=== PATIENT | female | born 1960 | race Caucasian/White ===

== ENCOUNTER 2016-09-01 19:16 | Emergency (ER) | payer OTHER ==
[~2016-09-01] VITALS: Ht 154.9 cm; Wt 56.7 kg
[~2016-09-01 19:16] MED LIST: ALLEGRA60 MG PO; ALPRAZOLAM0.25 M2 PO; ATORVASTATIN CA20 MG PO; CIPRO 500MG TA500 MG PO; EC NAPROSYN500 MG PO; FLEXERIL10 M1 PO; FLEXERIL10 MG PO; IMITREX 25MG TA25 MG PO; IMITREX50 MG OR; INDERAL 40MG. T40 MG PO; LORATADINE10 MG OR; LORTAB 5/500 501 TAB PO; MEDROL 4MG. DOSE4 MG PO; MOTRIN600 M1 PO; PEPCID40 MG PO; PREDNISONE 20MG20 MG PO; TESSALON PERLE100 MG PO; TYLENOL 8 HOUR650 MG PO; TYLENOL W/CODEI1 TA2 PO
[2016-09-01 19:20] VITALS: BP 140/79
[2016-09-01] MEDS ORDERED: METFORMIN 500M500 M1 PO (19:30)
[2016-09-01] MEDS ORDERED: SUMATRIPTAN SUC50 M1 PO (19:32)
[2016-09-01] MEDS ORDERED: PANTOPRAZOLE SO40 M1 PO (19:32)
[2016-09-01] MEDS ORDERED: ATORVASTATIN CA40 MG PO (19:33)
[2016-09-01] MEDS ORDERED: CLOPIDOGREL75 M2 PO (19:33)
[2016-09-01] MEDS ORDERED: BISOPROLOL FUMA10 MG PO (19:34)
[2016-09-01] MEDS ORDERED: VENTOLIN H0.09 MG/Ac IH (19:34)
[2016-09-01] MEDS ORDERED: ASPIRIN ADULT L81 M3 PO (19:35)
[2016-09-01 19:36] LABS: HEMOGLOBIN 13.1 g/dL (12.2-16.2); LYMPH # 2.4 K/mm3 (0.7-4.5); LYMPH % 20.5 % (10-50.0)
[2016-09-01 20:03] LABS: BUN 3 mg/dL (7-18)
[2016-09-01 20:05] LABS: GFR (ESTIMATED) 65 ML/MIN (59-)
--- OUTSIDE RECORDS SUMMARY | 2016-09-01 20:08 | External Medical Summary Rpt ---
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 R06.02 Shortness of breath R07.9 Chest pain, unspecified Z11.59 Encounter for screening for other viral diseases Z13.1 Encounter for screening for diabetes mellitus Z51.81 Encounter for therapeutic drug level monitoring Z72.0 Tobacco use Vital Signs 12-28-2012 12:30 Name Value Interpretat Reference Comment ion Range BP 87 mm[Hg] Diastolic BP Systolic 146 mm[Hg] Heart 94 /min Rate/Pulse O2% 98 % Respiratory 20 /min Rate Results Labs Lab Lab Date Result Refere Interp Status Commen Order Detail nces retati t Range on STREP SCREEN (RAPID) (12-28-2012 12:00) STREP POSITIV complet SCREEN 013 E ed (RAPID) 12:00 Encounters Encounter Start End Date Code Location Performer Type Date Emergency KUNAL Zuluaga MD (ER) 3 12:33 3 12:34 [facility]
--- OUTSIDE RECORDS SUMMARY | 2016-09-01 20:08 | External Medical Summary Rpt ---
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
--- OUTSIDE RECORDS SUMMARY | 2016-09-01 20:09 | External Medical Summary Rpt ---
Demographics Preferred Language Yakut Marital Status Unknown Congregational Affiliation Unknown Race Unknown Ethnic Group Unknown Author Author ZORAN Address Unknown Phone Immunization Unable to retrieve immunization data due to connection failure with Immunization Registry. Please try again later.
--- OUTSIDE RECORDS SUMMARY | 2016-09-01 20:09 | External Medical Summary Rpt ---
Author Author ZORAN Address Unknown Phone [email or web address] Purpose Continuity of Care Document - through 2016
--- OUTSIDE RECORDS SUMMARY | 2016-09-01 20:09 | External Medical Summary Rpt ---
Author Author ZORAN Address Unknown Phone [email or web address] Purpose Continuity of Care Document - through 2016
--- OUTSIDE RECORDS SUMMARY | 2016-09-01 20:09 | External Medical Summary Rpt ---
Demographics Preferred Language Occitan Marital Status Unknown Presybeterian Affiliation Unknown Race Unknown Ethnic Group Unknown Author Author ZORAN Address Unknown Phone Immunization Unable to retrieve immunization data due to connection failure with Immunization Registry. Please try again later.
[2016-09-01 20:10] LABS: URINE BILIRUBIN - DIPSTICK NEGATIVE (NEG); URINE BLOOD TRACE-INTACT (NEG)
--- OUTSIDE RECORDS SUMMARY | 2016-09-01 20:11 | External Medical Summary Rpt ---
Author Author [employer], [employer] Organization [employer] Address Unknown Phone Unavailable Results CBC W Auto Differential panel in Blood Observa Value Referen Units Interpr Notes Date tion ce etation Range Basophils 0 - 0.2 K/MM3 Normal No Sep 01 informati 2016 7:25 [#/volume on in PM ] in source Blood by data Automated count Basophils 0.1 - 2.0 % Normal No Sep 01 informati 2016 7:25 leukocyte on in PM s in source Blood by data Automated count Eosinophi 0.0 - 0.4 K/mm3 Normal No Sep 01 ls informati 2016 7:25 [#/volume on in PM ] in source Blood by data Automated count Eosinophi 0.1 - % Normal No Sep 01 ls/100 12.0 informati 2016 7:25 leukocyte on in PM s in source Blood by data Automated count Granulocy 1.8 - 7.8 K/mm3 High No Sep 01 yifan informati 2016 7:25 [#/volume on in PM ] in source Blood by data Automated count Granulocy 37.0 - % Normal No Sep 01 yifan/100 80.0 informati 2016 7:25 leukocyte on in PM s in source Blood by data Automated count Hematocri 37.0 - % Normal No Sep 01 t [Volume 47.0 informati 2016 7:25 on in PM Fraction] source of Blood data Hemoglobi 12.2 - g/dL Normal No Sep 01 n 16.2 informati 2016 7:25 [Mass/vol on in PM ume] in source Blood data Lymphocyt 0.7 - 4.5 K/mm3 Normal No Sep 01 es informati 2016 7:25 [#/volume on in PM ] in source Unspecifi data ed specimen by Automated count Lymphocyt 10 - 50.0 % Normal No Sep 01 es informati 2016 7:25 [#/volume on in PM ] in source Unspecifi data ed specimen by Automated count Erythrocy 27 - 31.2 pg Normal No Sep 01 te mean informati 2017 7:25 corpuscul on in PM ar source hemoglobi data n [Entitic mass] Erythrocy 31.8 - g/dl Normal No Sep 01 te mean 35.4 informati 2016 7:25 corpuscul on in PM ar source hemoglobi data n concentra tion [Mass/vol ume] by Automated count Erythrocy 82.2 - fl Normal No Sep 01 te mean 97.8 informati 2016 7:25 corpuscul on in PM ar volume source [Entitic data volume] by Automated count Monocytes 0.1 - 1.0 K/mm3 Normal No Sep 01 informati 2016 7:25 [#/volume on in PM ] in source Blood by data Automated count Monocytes 1.7 - 9.3 % Normal No Sep 01 /100 informati 2016 7:25 leukocyte on in PM s in source Blood by data Automated count Platelet 7.4 - fl Normal No Sep 01 mean 10.4 informati 2016 7:25 volume on in PM [Entitic source volume] data in Blood by Automated count Platelets 142 - 424 K/mm3 Normal No Sep 01 informati 2016 7:25 [#/volume on in PM ] in source Blood data Erythrocy 4.2 - 5.4 M/mm3 Normal No Sep 01 yifan informati 2016 7:25 [#/volume on in PM ] in source Amniotic data fluid Erythrocy 11.5 - % Normal No Sep 01 te 17.5 informati 2016 7:25 distribut on in PM ion width source [Entitic data volume] by Automated count Leukocyte 4.8 - K/MM3 High No Sep 01 s 10.8 informati 2016 7:25 [#/volume on in PM ] in source Blood data Hep Prf-Ac Observa Value Referen Units Interpr Notes Date tion ce etation Range Hepatit Negativ Negativ No No No May 25 is B e e informa informa informa 2017 virus tion in tion in tion in 10:16 surface source source source AM Ag data data data [Presen ce] in Serum by Immunoa ssay Hep B Negativ Negativ No No No May 25 Core e e informa informa informa 2017 IgM tion in tion in tion in 10:16 source source source AM data data data Hepatit Negativ Negativ No No No May 25 is A e e informa informa informa 2017 virus tion in tion in tion in 10:15 Ab source source source AM [Units/ data data data volume] in Serum by Radioim munmachelle muniz (BIBI) Hep C Negativ Negativ No No No May 25 Ab e e informa informa informa 2016 tion in tion in tion in 10:17 source source source AM data data data Glyco Observa Value Referen Units Interpr Notes ti ce etation Range Hemoglo 5.9 <=7.0 % No Referen May 24 bin informa ce 2017 A1c/Hem tion in Interva 6:20 PM oglobin source l for .total data Hgb in A1c\.br Blood \\.br\H gb A1c Interpr etation \.br\-- ------- -- ------- ------- --\.br\ \.br\ < 6.0 Non-Gracy betic Range\. br\6.0 - 7.0 ADA Therape utic Target\ .br\ > 7.0 Action suggest ed Lipid Scr Observa Value Referen Units Interpr Notes ce etation Range Cholest 269 <=200 mg/dL High < 200 May 24 alyssa 2017 [Percen 5:33 PM tile] Desirab le\.br\ 200 - 239 Borderl ine High\.b r\>= 240 High TRIGLYC 379 <=150 mg/dL High < 150 May 24 ERIDES. 2017 TOTAL Normal\ 5:33 PM .br\150 - 199 Borderl ine High\.b r\200 - 499 High\.b r\ >= 500 Very High CHOLEST 26 >=40 mg/dL Low > 60 May 24 EROLS.I 2017 N HDL Optimal 5:33 PM \.br\40 - 60 Accepta ble\.br \ < 40 Low LDL 167 <=100 mg/dL High < 100 May 24 Calcula 2017 brandyn 5:33 PM Optimal \.br\10 0 - 129 Near or above optimal \.br\13 0 - 159 Borderl ine High\.b r\160 - 189 High\.b r\ >= 190 Very High Auto Diff Observa Value Referen Units Interpr Notes ce etation Range Neutrop 46.4 No % No No May 24 hils informa informa informa 2017 [#/volu tion in tion in tion in 4:55 PM me] in source source source Blood data data data by Automat ed count Lymphoc 39.2 No % No No Apr 17 ytes informa informa informa 2017 [#/volu tion in tion in tion in 4:55 PM me] in source source source Blood data data data by Automat ed count Monocyt 9.7 No % No No Apr 17 es informa informa informa 2017 [#/volu tion in tion in tion in 4:55 PM me] in source source source Blood data data data by Automat ed count Eos 3.8 No % No No Apr 17 Percent informa informa informa 2017 tion in tion in tion in 4:55 PM source source source data data data Baso 0.9 No % No No Apr 17 Percent informa informa informa 2017 tion in tion in tion in 4:55 PM source source source data data data Neut# 3.9 1.8 - x10(3)/ No No Apr 17 7.7 mcL informa informa 2017 tion in tion in 4:55 PM source source data data Lymph# 3.3 0.6 - x10(3)/ No No Apr 17 4.8 mcL informa informa 2017 tion in tion in 4:55 PM source source data data [place]# 0.8 0.0 - x10(3)/ No No Apr 17 1.3 mcL informa informa 2017 tion in tion in 4:55 PM source source data data Eos# 0.3 0.0 - x10(3)/ No No Apr 17 0.5 mcL informa informa 2017 tion in tion in 4:55 PM source source data data Baso# 0.1 0.0 - x10(3)/ No No Apr 17 0.2 mcL informa informa 2017 tion in tion in 4:55 PM source source data data CBC Observa Value Referen Units Interpr Notes Date tion ce etation Range LEUKOCY 8.5 4.0 - x10(3)/ No No Apr 17 YIFAN 11.0 mcL informa informa 2017 tion in tion in 4:55 PM source source data data Erythro 4.40 3.80 - x10(6)/ No No Apr 17 cytes 5.10 mcL informa informa 2017 [#/volu tion in tion in 4:55 PM me] in source source Blood data data by Automat ed count Hemoglo 13.8 12.0 - gm/dL No No May 24 bin 15.6 informa informa 2017 [Mass/v tion in tion in 4:55 PM olume] source source in data data Blood Hematoc 40.9 35.7 - % No No May 24 rit 45.9 informa informa 2017 [Volume tion in tion in 4:55 PM source source Fractio data data n] of Blood by Automat ed count Erythro 93.0 82.5 - fL No No May 24 cyte 99.8 informa informa 2017 mean tion in tion in 4:55 PM corpusc source source ular data data volume [Entiti c volume] by Automat ed count Erythro 31.4 27.0 - pg No No May 24 cyte 34.3 informa informa 2016 mean tion in tion in 4:55 PM corpusc source source ular data data hemoglo bin [Entiti c mass] by Automat ed count Erythro 33.7 32.1 - gm/dL No No May 24 cyte 35.3 informa informa 2016 mean tion in tion in 4:55 PM corpusc source source ular data data hemoglo bin concent ration [Mass/v olume] by Automat ed count Erythro 14.1 11.5 - % No No May 24 cyte 15.0 informa informa 2016 distrib tion in tion in 4:55 PM ution source source width data data [Ratio] by Automat ed count Platele 321 144 - x10(3)/ No No May 24 ts 423 mcL informa informa 2016 [#/volu tion in tion in 4:55 PM me] in source source Blood data data by Automat ed count MPV 8.7 6.8 - fL No No May 24 10.8 informa informa 2017 tion in tion in 4:55 PM source source data data EK EKG 12 LEAD Observa Value Referen Units Interpr Notes Date tion ce etation Range Station No No No No Dec 04 vinnie ECG informa informa informa informa 2016 tion in tion in tion in tion in 6:14 AM Study\. source source source source br\St. data data data data Elijessibe th [employer] d\.br\I nterpre tive Stateme nts\.br \SINUS BRADYCA RDIA\.b r\POSSI BLE RIGHT VENTRIC ULAR CONDUCT ION DELAY\. br\No change since previou s ECG\.br \Electr onicall y Signed On 16:20:4 9 EDT by Jose Carlos Jordan MD EK EKG 12 LEAD Observa Value Referen Units Interpr Notes ce etation Range Station No No No No Dec 03 vinnie ECG informa informa informa informa 2015 tion in tion in tion in tion in 6:09 PM Study\. source source source source br\St. data data data data Elizabe th [employer] d\.br\I nterpre tive Stateme nts\.br \SINUS RHYTHM\ .br\POS SIBLE RIGHT VENTRIC ULAR CONDUCT ION DELAY\. br\No change since previou s ECG\.br \Electr onicall y Signed On 16:10:4 8 EDT by Jose Carlos Jordan MD XR CHEST PA AND LATERAL Observa Value Referen Units Interpr Notes ce etation Range \.br\XR No No No No Dec 03 CHEST informa informa informa informa 2015 PA AND tion in tion in tion in tion in 4:20 PM LATERAL source source source source data data data data 4:20 PM\.br\ \.br\Cl inical: -CHEST PAIN\.b r\\.br\ COMPARI SONS: None.\. br\\.br \FINDIN GS:\.br \\.br\T he lungs are clear. The costoph renic sulci are sharp. The heart and\.br \medias tinal\. br\cont ours are normal. There are no acute osseous finding s in the chest.\ .br\\.b r\IMPRE SSION:\ .br\\.b r\Claudia l chest.\ .br\ NT Pro-BNP Observa Value Referen Units Interpr Notes Date ce etation Range NT 193 <=319 pg/mL No An NT Dec 03 Pro-BNP informa pro-BNP 2015 tion in level 4:37 PM source less data than 300 pg/mL in any patient , regardl ess of age,\.b r\Effec tively rules out acute CHF with a 99% negativ e predict mehul value. PT Observa Value Referen Units Interpr Notes Date tion ce etation Range PT 11.0 10.1 - second( No No Dec 03 12.9 s) informa informa 2016 tion in tion in 4:24 PM source source data data INR in 0.96 0.88 - No No Level Dec 03 Platele 1.12 informa informa of 2016 t poor tion in tion in Therapy 4:24 PM plasma source source by data data Indicat Coagula ions tion Target assay INR Range\. br\\.br \Standa rd Dose Treatme nt and prophyl axis of venous 2.0 - 3.0\.br \ thrombo sis, pulmona ry embolis m\.br\\ .br\ High Dose High risk patient s with mechani dayron 2.5 - 3.5\.br \ heart valves Auto Diff Observa Value Referen Units Interpr Notes Date tion ce etation Range Neutrop 55.2 No % No No Dec 03 hils informa informa informa 2015 [#/volu tion in tion in tion in 4:08 PM me] in source source source Blood data data data by Automat ed count Lymphoc 33.2 No % No No Dec 03 ytes informa informa informa 2015 [#/volu tion in tion in tion in 4:08 PM me] in source source source Blood data data data by Automat ed count Monocyt 7.4 No % No No Dec 03 es informa informa informa 2015 [#/volu tion in tion in tion in 4:08 PM me] in source source source Blood data data data by Automat ed count Eos 3.4 No % No No Dec 03 Percent informa informa informa 2016 tion in tion in tion in 4:08 PM source source source data data data Baso 0.8 No % No No Dec 03 Percent informa informa informa 2016 tion in tion in tion in 4:08 PM source source source data data data Neut# 5.0 1.8 - x10(3)/ No No Dec 03 7.7 mcL informa informa 2016 tion in tion in 4:08 PM source source data data Lymph# 3.0 0.6 - x10(3)/ No No Dec 03 4.8 mcL informa informa 2016 tion in tion in 4:08 PM source source data data [place]# 0.7 0.0 - x10(3)/ No No Dec 03 1.3 mcL informa informa 2016 tion in tion in 4:08 PM source source data data Eos# 0.3 0.0 - x10(3)/ No No Dec 03 0.5 mcL informa informa 2016 tion in tion in 4:08 PM source source data data Baso# 0.1 0.0 - x10(3)/ No No Dec 03 0.2 mcL informa informa 2016 tion in tion in 4:08 PM source source data data CBC Observa Value Referen Units Interpr Notes Date tion ce etation Range LEUKOCY 9.0 4.0 - x10(3)/ No No Dec 03 YIFAN 11.0 [facility] informa informa 2015 tion in tion in 4:08 PM source source data data Erythro 4.08 3.80 - x10(6)/ No No Dec 03 cytes 5.10 [facility] informa informa 2015 [#/volu tion in tion in 4:08 PM me] in source source Blood data data by Automat ed count Hemoglo 12.7 12.0 - gm/dL No No Dec 03 bin 15.6 informa informa 2015 [Mass/v tion in tion in 4:08 PM olume] source source in data data Blood Hematoc 38.1 35.7 - % No No Dec 03 rit 45.9 informa informa 2016 [Volume tion in tion in 4:08 PM source source Fractio data data n] of Blood by Automat ed count Erythro 93.4 82.5 - fL No No Dec 03 cyte 99.8 informa informa 2016 mean tion in tion in 4:08 PM corpusc source source ular data data volume [Entiti c volume] by Automat ed count Erythro 31.1 27.0 - pg No No Dec 03 cyte 34.3 informa informa 2016 mean tion in tion in 4:08 PM corpusc source source ular data data hemoglo bin [Entiti c mass] by Automat ed count Erythro 33.2 32.1 - gm/dL No No Dec 03 cyte 35.3 informa informa 2016 mean tion in tion in 4:08 PM corpusc source source ular data data hemoglo bin concent ration [Mass/v olume] by Automat ed count Erythro 13.6 11.5 - % No No Dec 03 cyte 15.0 informa informa 2016 distrib tion in tion in 4:08 PM ution source source width data data [Ratio] by Automat ed count Platele 403 144 - x10(3)/ No No Dec 03 ts 423 mcL informa informa 2015 [#/volu tion in tion in 4:08 PM me] in source source Blood data data by Automat ed count MPV 7.7 6.8 - fL No No Dec 03 10.8 informa informa 2015 tion in tion in 4:08 PM source source data data EK EKG 12 LEAD Observa Value Referen Units Interpr Notes Date ti ce etation Range Station No No No No Dec 03 vinnie ECG informa informa informa informa 2016 tion in tion in tion in tion in 3:50 PM Study\. source source source source br\St. data data data data Elizabe th [employer] d\.br\I nterpre tive Stateme nts\.br \SINUS RHYTHM\ .br\POS SIBLE RIGHT VENTRIC ULAR CONDUCT ION DELAY\. br\NO PRIOR ECG FOR COMPARI SON\.br \Electr onicall y Signed On 016 16:06:0 9 EDT by Jose Carlos Jordan MD Free T3 Observa Value Referen Units Interpr Notes Date ti ce etation Range T3 Free 3.09 2.00 - pg/mL No No Nov 09 4.40 informa informa 2016 tion in tion in 9:51 PM source source data data Lipid Scr Observa Value Referen Units Interpr Notes Date tion ce etation Range Cholest 260 <=200 mg/dL High < 200 Nov 09 alyssa 2016 [Percen 9:50 PM tile] Desirab le\.br\ 200 - 239 Borderl ine High\.b r\>= 240 High TRIGLYC 305 <=150 mg/dL High < 150 Nov 09 ERIDES. 2016 TOTAL Normal\ 9:50 PM .br\150 - 199 Borderl ine High\.b r\200 - 499 High\.b r\ >= 500 Very High CHOLEST 29 >=40 mg/dL Low > 60 Nov 09 EROLS.I 2016 N HDL Optimal 9:50 PM \.br\40 - 60 Accepta ble\.br \ < 40 Low LDL 170 <=100 mg/dL High < 100 Nov 09 Calcula 2016 brandyn 9:51 PM Optimal \.br\10 0 - 129 Near or above optimal \.br\13 0 - 159 Borderl ine High\.b r\160 - 189 High\.b r\ >= 190 Very High TSH Observa Value Referen Units Interpr Notes Date tion ce etation Range Thyrotr 1.770 0.270 - mcIU/mL No No Nov 09 opin 4.200 informa informa 2015 [Units/ tion in tion in 9:51 PM volume] source source in data data Serum or Plasma Free T4 Observa Value Referen Units Interpr Notes Date tion ce etation Range Thyroxi 1.07 0.93 - ng/dL No No Nov 09 ne (T4) 1.70 informa informa 2015 free tion in tion in 9:50 PM [Mass/v source source olume] data data in Serum or Plasma Hemogram Observa Value Referen Units Interpr Notes Date tion ce etation Range LEUKOCY 8.3 4.0 - x10(3)/ No No Nov 09 YIFAN 11.0 mcL informa informa 2015 tion in tion in 9:20 PM source source data data Erythro 4.52 3.80 - x10(6)/ No No Nov 09 cytes 5.10 mcL informa informa 2015 [#/volu tion in tion in 9:20 PM me] in source source Blood data data by Automat ed count Hemoglo 14.1 12.0 - gm/dL No No Nov 09 bin 15.6 informa informa 2016 [Mass/v tion in tion in 9:20 PM olume] source source in data data Blood Hematoc 42.8 35.7 - % No No Nov 09 rit 45.9 informa informa 2016 [Volume tion in tion in 9:20 PM source source Fractio data data n] of Blood by Automat ed count Erythro 94.7 82.5 - fL No No Nov 09 cyte 99.8 informa informa 2016 mean tion in tion in 9:20 PM corpusc source source ular data data volume [Entiti c volume] by Automat ed count Erythro 31.1 27.0 - pg No No Nov 09 cyte 34.3 informa informa 2016 mean tion in tion in 9:20 PM corpusc source source ular data data hemoglo bin [Entiti c mass] by Automat ed count Erythro 32.8 32.1 - gm/dL No No Nov 09 cyte 35.3 informa informa 2016 mean tion in tion in 9:20 PM corpusc source source ular data data hemoglo bin concent ration [Mass/v olume] by Automat ed count Erythro 14.4 11.5 - % No No Nov 09 cyte 15.0 informa informa 2016 distrib tion in tion in 9:20 PM ution source source width data data [Ratio] by Automat ed count Platele 305 144 - x10(3)/ No No Nov 09 ts 423 mcL informa informa 2016 [#/volu tion in tion in 9:20 PM me] in source source Blood data data by Automat ed count MPV 8.7 6.8 - fL No No Nov 09 10.8 informa informa 2016 tion in tion in 9:20 PM source source data data XR CERVICAL SPINE AP LATERAL ODONTOID AND OBLIQUE Observa Value Referen Units Interpr Notes Date tion ce etation Range \.br\XR No No No No Jaiden 3 informa informa informa informa 2016 CERVICA tion in tion in tion in tion in 3:29 PM L SPINE source source source source AP data data data data LATERAL ODONTOI D AND OBLIQUE \.br\\. br\\.br \HISTOR Y: M54.2-C ervical dominique-ICD -10-CM\ .br\\.b r\\.br\ EXAM DATE:07/11/2015 3:29 PM\.br\ \.br\CO MPARISO N: 010.\.b r\\.br\ FINDING S:\.br\ There is no spondyl olisthe sis. There is no prevert ebral soft tissue\ .br\swe lling.\ .br\Dis c spaces are maintai radha. There are small vertebr al osteoph ytes at C4-C5\. br\and\ .br\C5- C6. There is mild osseous narrowi ng of the left C5-C6 neural foramen \.br\du e to\.br\ small margina l vertebr al osteoph ytes. There is no osseous narrowi ng of the\.br \neural foramen on the right.\ .br\\.b r\\.br\ IMPRESS ION:\.b r\\.br\ Mild hypertr ophic changes of C4, C5 and C6.\.br \Mild left foramin al narrowi ng at C5-C6.\ .br\ Free T3 Observa Value Referen Units Interpr Notes Date tion ce etation Range T3 Free 2.70 2.00 - pg/mL No No Feb 26 4.40 informa informa 2016 tion in tion in 3:27 PM source source data data Free T4 Observa Value Referen Units Interpr Notes Date tion ce etation Range Thyroxi 1.22 0.93 - ng/dL No No Feb 26 ne (T4) 1.70 informa informa 2016 free tion in tion in 3:27 PM [Mass/v source source olume] data data in Serum or Plasma Lipid Scr Observa Value Referen Units Interpr Notes Date tion ce etation Range Cholest 216 <=200 mg/dL High < 200 Feb 25 alyssa 2016 [Percen 6:44 PM tile] Desirab le\.br\ 200 - 239 Borderl ine High\.b r\>= 240 High TRIGLYC 174 <=150 mg/dL High < 150 Feb 25 ERIDES. 2016 TOTAL Normal\ 6:44 PM .br\150 - 199 Borderl ine High\.b r\200 - 499 High\.b r\ >= 500 Very High CHOLEST 33 >=40 mg/dL Low > 60 Feb 25 EROLS.I 2016 N HDL Optimal 6:44 PM \.br\40 - 60 Accepta ble\.br \ < 40 Low LDL 148 <=100 mg/dL High < 100 Feb 25 Calcula 2016 brandyn 6:44 PM Optimal \.br\10 0 - 129 Near or above optimal \.br\13 0 - 159 Borderl ine High\.b r\160 - 189 High\.b r\ >= 190 Very High TSH Observa Value Referen Units Interpr Notes Date tion ce etation Range Thyrotr 4.430 0.270 - mcIU/mL High No Feb 25 opin 4.200 informa 2016 [Units/ tion in 6:44 PM volume] source in data Serum or Plasma CBC Observa Value Referen Units Interpr Notes Date tion ce etation Range LEUKOCY 11.9 4.0 - x10(3)/ High No Feb 25 YIFAN 11.0 mcL informa 2016 tion in 6:07 PM source data Erythro 4.12 3.80 - x10(6)/ No No Feb 25 cytes 5.10 mcL informa informa 2016 [#/volu tion in tion in 6:07 PM me] in source source Blood data data by Automat ed count Hemoglo 13.0 12.0 - gm/dL No No Feb 25 bin 15.6 informa informa 2016 [Mass/v tion in tion in 6:07 PM olume] source source in data data Blood Hematoc 39.5 35.7 - % No No Feb 25 rit 45.9 informa informa 2016 [Volume tion in tion in 6:07 PM source source Fractio data data n] of Blood by Automat ed count Erythro 96.0 82.5 - fL No No Feb 25 cyte 99.8 informa informa 2016 mean tion in tion in 6:07 PM corpusc source source ular data data volume [Entiti c volume] by Automat ed count Erythro 31.6 27.0 - pg No No Feb 25 cyte 34.3 informa informa 2016 mean tion in tion in 6:07 PM corpusc source source ular data data hemoglo bin [Entiti c mass] by Automat ed count Erythro 32.9 32.1 - gm/dL No No Feb 25 cyte 35.3 informa informa 2016 mean tion in tion in 6:07 PM corpusc source source ular data data hemoglo bin concent ration [Mass/v olume] by Automat ed count Erythro 14.0 11.5 - % No No Feb 25 cyte 15.0 informa informa 2016 distrib tion in tion in 6:07 PM ution source source width data data [Ratio] by Automat ed count Platele 337 144 - x10(3)/ No No Feb 25 ts 423 mcL informa informa 2016 [#/volu tion in tion in 6:07 PM me] in source source Blood data data by Automat ed count MPV 8.8 6.8 - fL No No Feb 25 10.8 informa informa 2016 tion in tion in 6:07 PM source source data data Auto Diff Observa Value Referen Units Interpr Notes Date tion ce etation Range Neutrop 52.4 No % No No Feb 25 hils informa informa informa 2015 [#/volu tion in tion in tion in 6:07 PM me] in source source source Blood data data data by Automat ed count Lymphoc 34.5 No % No No Feb 25 ytes informa informa informa 2016 [#/volu tion in tion in tion in 6:07 PM me] in source source source Blood data data data by Automat ed count Monocyt 8.7 No % No No Feb 25 es informa informa informa 2016 [#/volu tion in tion in tion in 6:07 PM me] in source source source Blood data data data by Automat ed count Eos 3.5 No % No No Feb 25 Percent informa informa informa 2016 tion in tion in tion in 6:07 PM source source source data data data Baso 0.9 No % No No Feb 25 Percent informa informa informa 2016 tion in tion in tion in 6:07 PM source source source data data data Neut# 6.2 1.8 - x10(3)/ No No Feb 25 7.7 mcL informa informa 2016 tion in tion in 6:07 PM source source data data Lymph# 4.1 0.6 - x10(3)/ No No Feb 25 4.8 mcL informa informa 2016 tion in tion in 6:07 PM source source data data [place]# 1.0 0.0 - x10(3)/ No No Feb 25 1.3 mcL informa informa 2016 tion in tion in 6:07 PM source source data data Eos# 0.4 0.0 - x10(3)/ No No Feb 25 0.5 mcL informa informa 2016 tion in tion in 6:07 PM source source data data Baso# 0.1 0.0 - x10(3)/ No No Feb 25 0.2 mcL informa informa 2016 tion in tion in 6:07 PM source source data data XR KNEE LEFT AP LATERAL AND AXIAL Observa Value Referen Units Interpr Notes Date ti ce etation Range \.br\XR No No No No Oct 14 KNEE informa informa informa informa 2014 LEFT AP tion in tion in tion in tion in 12:50 source source source source PM LATERAL data data data data AND AXIAL 10/22/19 15 12:50 PM\.br\ \.br\Cl inical: 719.46- Pain in joint, lower leg-ICD -9-CM\. br\\.br \COMPAR ISONS: None.\. br\\.br \FINDIN GS:\.br \\.br\T here is normal alignme nt of left knee. The joint spaces are normal. There\. br\is\. br\tiny osteoph yte formati on of the patello femoral joint space. There is no\.br\ acute\. br\frac ture. There is no joint effusio n.\.br\ \.br\IM PRESSIO N:\.br\ \.br\Th ere is mild osteoar thritis of the left knee, predomi nantly involvi ng the\.br \patell ofemora l joint space. There is no acute fractur e.\.br\ CT ABDOMEN PELVIS W CONTRAST Observa Value Referen Units Interpr Notes Date ti ce etation Range CT No No No No June 21 abdomen informa informa informa informa 2014 and tion in tion in tion in tion in 12:16 pelvis source source source source PM with data data data data contras t\.br\\ .br\IND ICATION : Abdomin al pain and pancrea titis.\ .br\\.b r\PROCE DURE:\. br\\.br \CT abdomen and pelvis. 75 mL intrave nous contras t. Compari son February 25,\.br \2008.\ .br\\.b r\FINDI NGS:\.b r\\.br\ The lung bases are unremar kable. The liver spleen adrenal s kidneys and\.br \pancre as are normal. No\.br\ free fluid. No retrope ritonea l fluid. The visuali zed bowel and mesente ry\.br\ are unremar kable. No\.br\ abdomin al or pelvic lymph node enlarge ment.\. br\PELV IS:\.br \\.br\T he structu res of pelvis are unremar kable.\ .br\\.b r\No lytic or sclerot ic bone lesions .\.br\\ .br\IMP RESSION :\.br\\ .br\No acute intra-a bdomina l patholo gy. Fec Panc Elast-ARUP Observa Value Referen Units Interpr Notes Date tion ce etation Range Lopez 306 >=201 mcg/gm No INTERPR June 25 Elast-A informa ETIVE 2014 RUP tion in INFORMA 4:48 PM source TION: data Pancrea tic Elastas e\.br\ 201 ug/g or greater ....... ... Normal\ .br\ 100-200 ug/g ....... ....... ... Moderat e to mild\.b r\ pancrea tic insuffi ciency. \.br\ 99 ug/g or less... ....... ..... Severe exocrin e\.br\ pancrea tic insuffi ciency. Lipase Observa Value Referen Units Interpr Notes Date tion ce etation Range Lipase 18 13 - 60 IU/L No New June 21 Lvl informa referen 2014 tion in ce 4:46 PM source range data is signifi cantly differe nt from previou s. EGD-Colonoscopy Observa Value Referen Units Interpr Notes Date ti ce etation Range EGD-Col EGD-Col No No No No June 17 onoscop onoscop informa informa informa informa 2014 y y tion in tion in tion in tion in 7:45 AM Report\ source source source source .br\Salas data data data data e: 05/11/2 015 07:45 AM\.br\ Patient Name: NINFA ROOT\. br\Gend er: Female\ .br\\.b r\Accou nt #: [id number] 8\.br\D OB(age) : 89 (54)\.b r\\.br\ Endosco pist(s) :\.br\S kg cristina MD\.br\ \.br\\. br\\.br \\.br\\ .br\\.b r\\.br\ \.br\\. br\\.br \Referr ing Physici an(s):\ .br\CRISTAL ERIKA STEWART\ .br\[address] [place] [address]\.br \ (phone) \.br\([phone] (fax)\. br\\.br \\.br\A SA Class: P3 - 08:19:3 3 AM Angelique cristina\.br\\ .br\\.b r\Admin istered Medicat ions: Anesthe maikel adminis tered medicat ions\.b r\EGD Indicat ions: Dysphag ia: 787.20\ .br\Gen eral Procedu re:\.br \The procedu re, indicat ions, prepara tion and potenti al complic ations were\.b r\expla ined to the patient , who indicat ed underst anding and signed the\.br \corres ponding consent forms.. \.br\\. br\\.br \EGD\.b r\EGD Procedu re:\.br \Patien t was placed in left lateral decubit us positio n. The endosco pe was\.br \introd uced through mouth and advance d under direct visuali zation until second\ .br\par t of the duodenu m reached . Patient toleran ce to the procedu re was good. The\.br \proced ure was not difficu lt.\.br \\.br\E GD Finding s:\.br\ Esophag us Mucosa Diffuse grade II candidi asis was seen in the whole esophag us.\.br \These finding s were suggest mehul of Kate esophag itis. Samples were obtaine d for\.br \Histol ogy using a [place]. This is done to evaluat e for Kate esophag itis\.b r\Stoma ch Mucosa Erosion s of the mucosa was noted in the antrum. These finding s\.br\a re compati ble with erosive gastrit is. Multipl e cold forceps biopsie s were\.b r\perfo rmed for H. pylori in the stomach antrum. \.br\\. br\\.br \Colono scopy\. br\[place] noscopy Procedu re:\.br \The quality of prepara tion was Good. Patient was placed in left lateral \.br\de cubitus positio n. The colonos cope was introdu pa through rectum and advance d\.br\u nder direct visuali zation until cecum reached cm. The colonos cope was\.br \retrof lexed within the rectum. Careful visuali zation was perform ed as the\.br \instru ment was withdra wn. Patient toleran ce to the procedu re was excelle nt. The\.br \proced ure was not difficu lt. Digital exam was normal. \.br\\. br\[place] noscopy Finding s:\.br\ Mucosa Normal mucosa was noted in the whole colon. Multipl e cold forceps \.br\bi opsies were perform ed for histolo gy in the whole colon. This was done to\.br\ evaluat e for microsc opic colitis .\.br\\ .br\\.b r\EGD Impress ions:\. br\[place]ardner ions in the antrum compati ble with erosive gastrit is. (Biopsy ).\.br\ Esophag eal candidi asis (Brushi ng).\.b r\\.br\ Colonos copy Impress ions:\. br\Norm al mucosa in the whole colon. (Biopsy ).\.br\ \.br\Pl an: Await patholo gy results \.br\\. br\Papo cristina MD\.br\ Electro nically signed on 06/18/19 15 8:50:32 AM by Angelique cristina MD\.br\ MM US BREAST BIOPSY RIGHT Observa Value Referen Units Interpr Notes Date tion ce etation Range MM US No No No No Jun 05 BREAST informa informa informa informa 2014 BIOPSY tion in tion in tion in tion in 8:52 AM RIGHT\. source source source source br\ULTR data data data data ASOUND GUIDED VACUUM ASSISTE D RIGHT BREAST BIOPSY WITH CLIP PLACEME NT\.br\ AND A POST PROCEDU RE TWO VIEW MAMMOGR AM:\.br \Histor y: 54 year old female with detecti on of a 9 mm. oval solid mass in\.br\ the anterio r right breast 11:00 positio n.\.br\ The procedu re with risk and benefit was explain ed and informe d consent was\.br \obtain ed.\.br \The nearly isoecho ic mass was localiz ed by ultraso und in the 11:00\. br\posi tion.\. br\The overlyi ng skin was prepped and local anesthe maikel was obtaine d with\.b r\Lidoc ronit.\. br\Afte r a skin marek was made multipl e vacuum assiste d samples were obtaine d\.br\t hrough the lesion under ultraso und visuali zation. \.br\Fo llowing biopsy a marker clip was advance d into the mass.\. br\A post procedu re two view mammogr am demonst rates expecte d clip placeme nt.\.br \There were no immedia te complic ations. \.br\Fu rther imaging follow- up will be pending final patholo gy results .\.br\P atholog y Results : Benign\ .br\Thomas ign fibroad enoma.\ .br\REC OMMENDA TION:\. br\Rout ine screeni ng mammogr am in 1 year. MM POST PROCEDURE FILM DIGITAL RIGHT Observa Value Referen Units Interpr Notes Date tion ce etation Range MM POST No No No No Jun 05 informa informa informa informa 2014 PROCEDU tion in tion in tion in tion in 8:20 AM RE FILM source source source source data data data data DIGITAL RIGHT\. br\ULTR ASOUND GUIDED VACUUM ASSISTE D RIGHT BREAST BIOPSY WITH CLIP PLACEME NT\.br\ AND A POST PROCEDU RE TWO VIEW MAMMOGR AM:\.br \Histor y: 54 year old female with detecti on of a 9 mm. oval solid mass in\.br\ the anterio r right breast 11:00 positio n.\.br\ The procedu re with risk and benefit was explain ed and informe d consent was\.br \obtain ed.\.br \The nearly isoecho ic mass was localiz ed by ultraso und in the 11:00\. br\posi tion.\. br\The overlyi ng skin was prepped and local anesthe maikel was obtaine d with\.b r\Lidoc ronit.\. br\Afte r a skin marek was made multipl e vacuum assiste d samples were obtaine d\.br\t hrough the lesion under ultraso und visuali zation. \.br\Fo llowing biopsy a marker clip was advance d into the mass.\. br\A post procedu re two view mammogr am demonst rates expecte d clip placeme nt.\.br \There were no immedia te complic ations. \.br\Fu rther imaging follow- up will be pending final patholo gy results . MM MAMMO DIGITAL DIAGNOSTIC W CAD RIGHT Observa Value Referen Units Interpr Notes Date tion ce etation Range Procedu No No No No May 29 re:MM informa informa informa informa 2014 MAMMO tion in tion in tion in tion in 2:15 PM DIGITAL source source source source data data data data DIAGNOS TIC W CAD RIGHT\. br\Reas on for exam: additio nal evaluat ion request ed from abnorma l screeni ng.\.br \MM MAMMO DIGITAL DIAG CAD RIGHT\. br\CC and MLO view(s) were taken of the right breast. \.br\Th ere is a benign appeari ng 1.1 cm. oval density with circums cribed\ .br\mar gins\.b r\in the anterio r 11:00 positio n of the right breast. \.br\IM PRESSIO N: Incompl ete-nee d additio nal imaging evaluat ion\.br \(ACR-C ategory -0)\.br \RECOMM ENDATIO N:\.br\ Ultraso und of the right breast. \.br\, this ultraso und examina tion was perform ed on 05-29-14 and will be\.br\ reporte d\.br\s eparate ly.\.br \* The patient with a palpabl e abnorma lity, unexpla ined by breast\ .br\shirley ging, should be managed on clinica l basis by the attendi ng physici an.\.br \* Breast imaging has a false negativ e rate of 15%.\.b r\* The patient was notifie d by mail of the results of this examina tion.\. br\*The patient 's informa tion was entered into a [employer] system with a\.br\t arget\. br\due date for the next mammogr am.\.br \The mammogr am was reviewe d by a Radiolo gist and CAD. MM US BREAST LIMITED RIGHT Observa Value Referen Units Interpr Notes Date tion ce etation Range MM US No No No No May 29 BREAST informa informa informa informa 2014 LIMITED tion in tion in tion in tion in 10:10 source source source source AM RIGHT\. data data data data br\The exam of the non-pal pable mass in the right breast 11:00 anterio r\.br\p osition seen on recent mammogr am reveals 5 x 9 mm. oval mass hypoech oic .\.br\T hese finding s are consist ent with solid mass. It has a small interna l\.br\c ystic compone nt.\.br \IMPRES BARBARA: Suspici ous abnorma lity\.b r\(ACR- Categor y-4)\.b r\RECOM MENDATI ON:\.br \Ultras ound guided core biopsy. MM MAMMO DIGITAL SCREENING W CAD BILAT Observa Value Referen Units Interpr Notes Date tion ce etation Range Procedu No No No No May 24 re:MM informa informa informa informa 2015 MAMMO tion in tion in tion in tion in 2:35 PM DIGITAL source source source source data data data data SCREENI NG W CAD BILAT\. br\Reas on for exam: screeni ng (asympt omatic) .\.br\M M MAMMO DIG SCREEN CAD BILAT\. br\Bila teral CC and MLO view(s) were taken.\ .br\The re is a benign appeari ng 0.9 cm. oval density in the 11:00 positio n of\.br\ the right breast. \.br\Co mpared to prior studies the most recent being 04-05-01 \.br\IM PRESSIO N: Incompl ete-nee d additio nal imaging evaluat ion\.br \(ACR-C ategory -0)\.br \RECOMM ENDATIO N:\.br\ Special view mammogr am and ultraso und of the right breast. \.br\* The patient with a palpabl e abnorma lity, unexpla ined by breast\ .br\shirley ging, should be managed on clinica l basis by the attendi ng physici an.\.br \* Breast imaging has a false negativ e rate of 15%.\.b r\* The patient was notifie d by mail of the results of this examina tion.\. br\*The patient 's informa tion was entered into a [employer] system with a\.br\t arget\. br\due date for the next mammogr am.\.br \The mammogr am was reviewe d by a Radiolo gist and CAD. US RIGHT UPPER QUADRANT Observa Value Referen Units Interpr Notes Date tion ce etation Range PROCEDU No No No No May 24 RE: informa informa informa informa 2014 Right tion in tion in tion in tion in 2:05 PM upper source source source source quadran data data data data t ultraso und, 05/25/19 15.\.br \\.br\I NDICATI ON: Abdomin al pain.\. br\\.br \FINDIN GS: Right upper quadran t ultraso und. Compari son CT perform ed\.br\ 02/25/19 09. Gallbla dder is\.br\ normal. No choleli thiasis or cholecy stitis. The liver is sonogra phicall y\.br\n ormal. No focal\. br\hepa tic lesions . No intrahe patic or extrahe patic bile duct dilatat ion.\.b r\Commo n bile duct\.b r\measu res 2 mm. Pancrea s is sonogra phicall y normal where visuali zed. There\. br\is no hydrone phrosis \.br\in the right kidney which measure s 10.1 cm in length. \.br\\. br\IMPR ESSION: Negativ e right upper quadran t ultraso und. Vit D 1,25-SOLS Observa Value Referen Units Interpr Notes Date tion ce etation Range Vitamin 36 18 - 72 pg/mL No No Apr 1 D,1,25 informa informa 2014 ([place])2, tion in tion in 11:29 source source AM Total-S data data OLS Vitamin <8 No pg/mL No Vitamin May 08 informa informa D3, 2014 D2,1,25 tion in tion in 1,25([place] 11:29 source source )2 AM ([place])2-S data data indicat OLS es both endogen ous\.br \produc tion and supplem entatio n. Vitamin D2, 1,25([place] )2\.br\ is an indicat or of exogeou s sources , such as diet or\.br\ supplem entatio n. Interpr etation and therapy are based\. br\on measure ment of Vitamin D,1,25( [place])2, Total.\ .br\Thi s test was develop ed and its perform ance\.b r\berry cterist ics have been determi radha by [facility]\. br\Diag nostics [facility], [place], [place].\.br \Perfor marline charact eristic s refer to the\.br \analyt ical perform ance of the test.\. br\Perf ormed at: [facility]\.br\ [address], [address]\.br \ [place] [address] Vitamin 36 No pg/mL No No Apr 1 informa informa informa 2014 D3,1,25 tion in tion in tion in 11:29 source source source AM ([place])2-S data data data OLS Glyco Observa Value Referen Units Interpr Notes Date tion ce etation Range Hemoglo 5.7 <=7.0 % No Initial May 02 bin informa 2014 A1c/Hem tion in Diagnos 8:58 AM oglobin source tic .total data Criteri in a\.br\< Blood 5.7 % Normal\ .br\5.7 - 6.4 % At risk for diabete s mellitu s\.br\> = 6.5 % Consist ent with diabete s mellitu s\.br\\ .br\Gracy betes monitor ing\.br \Target Value (ADA recomme nded): < 7 % Auto Diff Observa Value Referen Units Interpr Notes Date tion ce etation Range Neutrop 56.1 No % No No Apr 25 hils informa informa informa 2014 [#/volu tion in tion in tion in 6:55 PM me] in source source source Blood data data data by Automat ed count Lymphoc 30.5 No % No No Apr 25 ytes informa informa informa 2014 [#/volu tion in tion in tion in 6:55 PM me] in source source source Blood data data data by Automat ed count Monocyt 9.6 No % No No May 01 es informa informa informa 2014 [#/volu tion in tion in tion in 6:55 PM me] in source source source Blood data data data by Automat ed count Eos 2.6 No % No No Apr 25 Percent informa informa informa 2014 tion in tion in tion in 6:55 PM source source source data data data Baso 1.2 No % No No Apr 25 Percent informa informa informa 2014 tion in tion in tion in 6:55 PM source source source data data data Neut# 5.1 1.8 - x10(3)/ No No May 01 7.7 mcL informa informa 2014 tion in tion in 6:55 PM source source data data Lymph# 2.8 0.6 - x10(3)/ No No May 01 4.8 mcL informa informa 2014 tion in tion in 6:55 PM source source data data [place]# 0.9 0.0 - x10(3)/ No No May 01 1.3 mcL informa informa 2014 tion in tion in 6:55 PM source source data data Eos# 0.2 0.0 - x10(3)/ No No May 01 0.5 mcL informa informa 2014 tion in tion in 6:55 PM source source data data Baso# 0.1 0.0 - x10(3)/ No No May 01 0.2 mcL informa informa 2014 tion in tion in 6:55 PM source source data data CBC Observa Value Referen Units Interpr Notes Date tion ce etation Range LEUKOCY 9.1 4.0 - x10(3)/ No No May 01 YIFAN 11.0 mcL informa informa 2014 tion in tion in 6:55 PM source source data data Erythro 4.05 3.80 - x10(6)/ No May 01 cytes 5.10 mcL informa informa 2014 [#/volu tion in tion in 6:55 PM me] in source source Blood data data by Automat ed count Hemoglo 13.5 12.0 - gm/dL No May 01 bin 15.6 informa informa 2014 [Mass/v tion in tion in 6:55 PM olume] source source in data data Blood Hematoc 39.2 35.7 - % No May 01 rit 45.9 informa informa 2014 [Volume tion in tion in 6:55 PM source source Fractio data data n] of Blood by Automat ed count Erythro 96.6 82.5 - fL No No May 01 cyte 99.8 informa informa 2014 mean tion in tion in 6:55 PM corpusc source source ular data data volume [Entiti c volume] by Automat ed count Erythro 33.2 27.0 - pg No No May 01 cyte 34.3 informa informa 2014 mean tion in tion in 6:55 PM corpusc source source ular data data hemoglo bin [Entiti c mass] by Automat ed count Erythro 34.4 32.1 - gm/dL No No May 01 cyte 35.3 informa informa 2014 mean tion in tion in 6:55 PM corpusc source source ular data data hemoglo bin concent ration [Mass/v olume] by Automat ed count Erythro 14.8 11.5 - % No No May 01 cyte 15.0 informa informa 2014 distrib tion in tion in 6:55 PM ution source source width data data [Ratio] by Automat ed count Platele 356 144 - x10(3)/ No No May 01 ts 423 mcL informa informa 2014 [#/volu tion in tion in 6:55 PM me] in source source Blood data data by Automat ed count MPV 8.9 6.8 - fL No May 01 10.8 informa informa 2014 tion in tion in 6:55 PM source source data data Lipid Scr Observa Value Referen Units Interpr Notes Date ti ce etation Range Cholest 233 <=200 mg/dL High < 200 May 01 alyssa 2015 [Percen 6:01 PM tile] Desirab le\.br\ 200 - 239 Borderl ine High\.b r\>= 240 High TRIGLYC 333 <=150 mg/dL High < 150 May 01 ERIDES. 2015 TOTAL Normal\ 6:01 PM .br\150 - 199 Borderl ine High\.b r\200 - 499 High\.b r\ >= 500 Very High CHOLEST 24 >=40 mg/dL Low > 60 May 01 EROLS.I 2014 N HDL Optimal 6:01 PM \.br\40 - 60 Accepta ble\.br \ < 40 Low LDL 142 <=100 mg/dL High < 100 May 01 Calcula 2015 brandyn 6:01 PM Optimal \.br\10 0 - 129 Near or above optimal \.br\13 0 - 159 Borderl ine High\.b r\160 - 189 High\.b r\ >= 190 Very High TSH Observa Value Referen Units Interpr Notes Date tion ce etation Range Thyrotr 3.800 0.270 - mcIU/mL No No May 01 opin 4.200 informa informa 2014 [Units/ tion in tion in 6:01 PM volume] source source in data data Serum or Plasma
--- OUTSIDE RECORDS SUMMARY | 2016-09-01 20:11 | External Medical Summary Rpt ---
[...] in 4:55 PM source source data data [place]aston# 0.8 0.0 - x10(3)/ No No Apr [...] in 4:08 PM source source data data [place]# 0.7 0.0 - x10(3)/ No No Dec [...] x10(3)/ No No Dec 03 YIFAN 11.0 [facility] informa informa 2015 tion in tion in 4:08 PM source source data data Erythro 4.08 3.80 - x10(6)/ No No Dec 03 cytes 5.10 [facility] informa informa 2015 [#/volu tion in tion [...] in 6:07 PM source source data data [place]aston# 1.0 0.0 - x10(3)/ No No Feb [...] br\Gend er: Female\ .br\\.b r\Accou nt #: [id number] 8\.br\D OB(age) : 961 (54)\.b r\\.br\ Endosco pist(s) :\.br\S kg cristina MD\.br\ \.br\\. br\\.br \\.br\\ .br\\.b r\\.br\ \.br\\. br\\.br \Referr ing Physici an(s):\ .br\CRISTAL ERIKA STEWART\ .br\[address] [place] [address]\.br \ (phone) \.br\([phone] (fax)\. br\\.br \\.br\A SA Class: P3 - [...] obtaine d for\.br \Histol ogy using a [place]. This is done to evaluat e for Kate esophag itis\.b r\Stoma ch Mucosa Erosion s of the mucosa was noted in the antrum. These finding s\.br\a re compati ble with erosive gastrit is. Multipl e cold forceps biopsie s were\.b r\perfo rmed for H. pylori in the stomach antrum. \.br\\. br\\.br \Colono scopy\. br\[place] noscopy Procedu re:\.br \The quality of prepara [...] difficu lt. Digital exam was normal. \.br\\. br\[place] noscopy Finding s:\.br\ Mucosa Normal mucosa was noted in the whole colon. Multipl e cold forceps \.br\bi opsies were perform ed for histolo gy in the whole colon. This was done to\.br\ evaluat e for microsc opic colitis .\.br\\ .br\\.b r\EGD Impress ions:\. br\[place] ions in the antrum compati ble with [...] 's informa tion was entered into a [employer] system with a\.br\t arget\. br\due date for [...] 's informa tion was entered into a [employer] system with a\.br\t arget\. br\due date [...] ance of the test.\. br\Perf ormed at: [facility]\.br\ [address], [address]\.br \ [place] [place] [address] Vitamin 36 No pg/mL No No Apr [...] in 6:55 PM source source data data [place]# 0.9 0.0 - x10(3)/ No No May [...]
--- NOTE | 2016-09-01 20:27 | Emergency Room Report ---
See Addendum History of Present Illness Time Seen by 2005 Presenting Problem in Triage Pt arrived:Walked Presenting Problem:C/O RIGHT SIDED CHEST PAIN WORSE WITH DEEP RESP. SHARP IN NATURE. SOME RADIATION TO MID CHEST. 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 N Clinical Suspician of Infection? N Mental Status: 1 - Regular (Normal Baseline) Sepsis Risk:Possible Sepsis Risk Have you (or family members/close friends) recently traveled outside the [place]? N If Yes, where/when: Have you had exposure to infectious disease within the past month? N TB? Other? Specify: Source patient, RN notes reviewed, family, old records Exam Limitations no limitations Comment pt with rt sided chest pain which at times feels like pressure which has been intermittent since yesterday - has hx of cad - with prev cath - records were reviewed Cardiac Chest Pain Chest pain indicative of cardiac Yes Timing/Duration 4-6 hours, gone now Severity/Quality moderate, pressure Location central Chest Pain Radiation no radiation Activities at Onset light activity Nitro Today/Relief no nitro taken today Aspirin Treatment Today 325 mg x 1, provided by ED Beta wilbur treatment today no beta wilbur taken Cardiac risk factors + cardiovascular disease, Diabetes, + family history, HTN controlled Prior Workup/Intervention cardiac cath Timing/Duration yesterday Severity moderate ALLERGIES Coded Allergies: No Known Allergies (12/02/15) Home Medications Active Scripts APAP 300MG W/CODEINE 30MG (Acetaminophen-Cod #3 Tablet) 1 TAB PO Q4HP PRN sever pain #12 TAB Prov: 11/07/13 Reported Medications Sumatriptan Succinate (Imitrex) 50 MG OR PRN PRN MIGRAINES Alprazolam 0.25 MG PO BID Metformin HCl (Metformin) 500 MG PO DAILY #30 TAB Pantoprazole Sodium 40 MG PO DAILY #60 Sumatriptan Succinate 50 MG PO NEEDED PRN MIGRAINES #9 Atorvastatin Calcium 40 MG PO BEDTIME #30 CLOPIDOGREL BISULFATE (Clopidogrel) 75 MG PO DAILY #30 Bisoprolol Fumarate 10 MG PO BEDTIME #30 Albuterol Sulfate (Ventolin Hfa) 0.09 MG IH NEEDED PRN SOB #18 Aspirin (Aspirin EC) 81 MG PO DAILY #30 History Medical History General CAD? Yes Angina: Yes [place]: No Hypertension? Yes Hyperlipidemia? Yes CHF? No DVT? No PE? No COPD? Yes Asthma? Yes Anemia? No GERD? Yes Gastric ulcers? No GI Bleed? No Hernia? No Thyroid Problems? No Hypothyroidism? No CVA? No Seizures? No Diabetes? No Renal Insuffiency? No End Stage Renal Disease? No UTI? No Stones? No BPH? No GB Disease: No Nephritic Syndrome? No Asplenia? No Hepatitis? No Arthritis? No Migraines? Yes Cataracts? No Glaucoma? No MRSA? No HIV? No TB? No Anxiety? Yes Depression? No Cancer? 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 Respiratory denies cough, denies shortness of breath, denies wheezing Cardiovascular see HPI, chest pain, denies syncope Gastrointestinal denies abdominal pain, denies diarrhea, denies vomiting Genitourinary denies: dysuria, frequency, hesitancy, hematuria. Musculoskeletal denies back pain, denies joint pain, denies joint swelling, denies neck pain Skin denies rash Psychiatric/Neurological denies headache, denies seizure Physical Exam Vital Signs Vital Signs Date Time Temp Pulse Resp B/P Pulse O2 O2 Flow FiO2 Ox Delivery Rate 09/01 2052 99.3 88 18 144/82 99 09/01 2006 95 16 128/81 99 09/01 194 99.3 99 18 128/81 99 09/02 1919 99.3 96 20 140/79 100 General Appearance no apparent distress Eye Exam - bilateral eye PERRL, bilateral eye EOMI Ear, Nose, Throat normal ENT inspection Neck supple Respiratory Status No: respiratory distress. Lung Sounds bilateral: lungs clear. 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 No Results/Orders Laboratory Tests 09/01/161999: Urine Color YELLOW, Urine Appearance CLEAR, Urine pH 6.5, Ur Specific [place] <= 1.005, Urine Protein NEGATIVE, Urine Ketones NEGATIVE, Urine Blood TRACE-INTACT, Urine Nitrate NEGATIVE, Urine Bilirubin NEGATIVE, Urine Urobilinogen 0.2, Ur Leukocyte Esterase NEGATIVE, Urine WBC 3-5, Ur Squamous Epith Cells 3-5, Urine Bacteria 1+, Urine Glucose NEGATIVE 09/01/161924: Sodium 141, Potassium 3.1 L, Chloride 105, Carbon Dioxide 24, BUN 3 L, Creatinine 0.9, Estimated Creat Clear 62, Estimated GFR (MDRD) 65, Glucose 88, Calcium 9.1, Total Bilirubin 0.5, AST 19, ALT 28, Alkaline Phosphatase 122 H, Creatine Kinase 56, CK-MB (CK-2) Rel Index 0.9, CK and CKMB Interp < 0.5, Troponin I < 0.02, Total Protein 7.9, Albumin 3.8, Globulin 4.1 H, Albumin/ Globulin Ratio 0.9 L, D-Dimer 167, WBC 11.8 H, RBC 4.22, Hgb 13.1, Hct 39.4, MCV 93.3, RDW 13.8, Plt Count 309, MPV 8.0, Gran % 71.9, Gran # 8.5 H, Lymphocytes % 20.5, Monocytes % 6.0, Eosinophils % 1.2, Basophils % 0.4, Lymphocytes # 2.4, Monocytes # 0.7, Eosinophils # 0.1, Basophils # 0.1, PUBS MCHC 33.3, MCH 31.1 Current Medication Orders Sig/Azucena Start time Last Medication Dose Route Stop Time Status Admin Nitroglycerin 1 IN ONCE ONE 09/01 2114 AC 09/01 TP 09/01 Nitroglycerin 0 .STK-MED ONE 09/02 2111 DC .ROUTE Aspirin 324 MG ONCE ONE 09/01 1944 DC 09/01 PO 09/01 Sodium Chloride 10 ML PRN PRN 09/01 1929 AC IV 09/02 1920 Aspirin 0 .STK-MED ONE 09/02 1923 DC .ROUTE Orders Procedure Date/time Status Decision to admit 09/01 2112 Active D-DIMER 09/02 2027 Complete URINALYSIS/COMPLETE 09/01 2005 Complete 12 LEAD EKG-BESSON (INITIAL) 09/01 1920 Active ELECTROCARDIOGRAM REQUEST 09/01 1920 Active CHEST-PORTABLE 09/01 1920 Active IV SALINE LOCK 09/01 1920 Active 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 ST/Twave chgs XRAY/CT/US XRAY/CT/US XRAY chest XR interpretation by reviewed by me Xray Results normal/NAD Departure Departure Time of Disposition 2103 Disposition Still a Patient Clinical Impression Primary Impression: Chest pain Qualifiers: Chest pain type: precordial pain Qualified Code: R07.2 - Precordial pain Condition STABLE Referrals ALISIA CHAVEZ (Family) discussed with dr lane and dr reed ED Critical Care Critical Care No at 2114
--- NOTE | 2016-09-01 20:27 | Emergency Room Report ---
See Addendum History of Present Illness Time Seen by 2005 Presenting Problem in Triage Pt arrived:Walked Presenting Problem:C/O RIGHT SIDED CHEST PAIN WORSE WITH DEEP RESP. SHARP IN NATURE. SOME RADIATION TO MID CHEST. 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 N Clinical Suspician of Infection? N Mental Status: 1 - Regular (Normal Baseline) Sepsis Risk:Possible Sepsis Risk Have you (or family members/close friends) recently traveled outside the [place]? N If Yes, where/when: Have you had exposure to infectious disease within the past month? N TB? Other? Specify: Source patient, RN notes reviewed, family, old records Exam Limitations no limitations Comment pt with rt sided chest pain which at times feels like pressure which has been intermittent since yesterday - has hx of cad - with prev cath - records were reviewed Cardiac Chest Pain Chest pain indicative of cardiac Yes Timing/Duration 4-6 hours, gone now Severity/Quality moderate, pressure Location central Chest Pain Radiation no radiation Activities at Onset light activity Nitro Today/Relief no nitro taken today Aspirin Treatment Today 325 mg x 1, provided by ED Beta wilbur treatment today no beta wilbur taken Cardiac risk factors + cardiovascular disease, Diabetes, + family history, HTN controlled Prior Workup/Intervention cardiac cath Timing/Duration yesterday Severity moderate ALLERGIES Coded Allergies: No Known Allergies (12/02/15) Home Medications Active Scripts APAP 300MG W/CODEINE 30MG (Acetaminophen-Cod #3 Tablet) 1 TAB PO Q4HP PRN sever pain #12 TAB Prov: 11/07/13 Reported Medications Sumatriptan Succinate (Imitrex) 50 MG OR PRN PRN MIGRAINES Alprazolam 0.25 MG PO BID Metformin HCl (Metformin) 500 MG PO DAILY #30 TAB Pantoprazole Sodium 40 MG PO DAILY #60 Sumatriptan Succinate 50 MG PO NEEDED PRN MIGRAINES #9 Atorvastatin Calcium 40 MG PO BEDTIME #30 CLOPIDOGREL BISULFATE (Clopidogrel) 75 MG PO DAILY #30 Bisoprolol Fumarate 10 MG PO BEDTIME #30 Albuterol Sulfate (Ventolin Hfa) 0.09 MG IH NEEDED PRN SOB #18 Aspirin (Aspirin EC) 81 MG PO DAILY #30 History Medical History General CAD? Yes Angina: Yes [place]: No Hypertension? Yes Hyperlipidemia? Yes CHF? No DVT? No PE? No COPD? Yes Asthma? Yes Anemia? No GERD? Yes Gastric ulcers? No GI Bleed? No Hernia? No Thyroid Problems? No Hypothyroidism? No CVA? No Seizures? No Diabetes? No Renal Insuffiency? No End Stage Renal Disease? No UTI? No Stones? No BPH? No GB Disease: No Nephritic Syndrome? No Asplenia? No Hepatitis? No Arthritis? No Migraines? Yes Cataracts? No Glaucoma? No MRSA? No HIV? No TB? No Anxiety? Yes Depression? No Cancer? 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 Respiratory denies cough, denies shortness of breath, denies wheezing Cardiovascular see HPI, chest pain, denies syncope Gastrointestinal denies abdominal pain, denies diarrhea, denies vomiting Genitourinary denies: dysuria, frequency, hesitancy, hematuria. Musculoskeletal denies back pain, denies joint pain, denies joint swelling, denies neck pain Skin denies rash Psychiatric/Neurological denies headache, denies seizure Physical Exam Vital Signs Vital Signs Date Time Temp Pulse Resp B/P Pulse O2 O2 Flow FiO2 Ox Delivery Rate 09/01 2052 99.3 88 18 144/82 99 09/01 2006 95 16 128/81 99 09/01 194 99.3 99 18 128/81 99 09/02 1919 99.3 96 20 140/79 100 General Appearance no apparent distress Eye Exam - bilateral eye PERRL, bilateral eye EOMI Ear, Nose, Throat normal ENT inspection Neck supple Respiratory Status No: respiratory distress. Lung Sounds bilateral: lungs clear. 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 No Results/Orders Laboratory Tests 09/01/161999: Urine Color YELLOW, Urine Appearance CLEAR, Urine pH 6.5, Ur Specific [place] <= 1.005, Urine Protein NEGATIVE, Urine Ketones NEGATIVE, Urine Blood TRACE-INTACT, Urine Nitrate NEGATIVE, Urine Bilirubin NEGATIVE, Urine Urobilinogen 0.2, Ur Leukocyte Esterase NEGATIVE, Urine WBC 3-5, Ur Squamous Epith Cells 3-5, Urine Bacteria 1+, Urine Glucose NEGATIVE 09/01/161924: Sodium 141, Potassium 3.1 L, Chloride 105, Carbon Dioxide 24, BUN 3 L, Creatinine 0.9, Estimated Creat Clear 62, Estimated GFR (MDRD) 65, Glucose 88, Calcium 9.1, Total Bilirubin 0.5, AST 19, ALT 28, Alkaline Phosphatase 122 H, Creatine Kinase 56, CK-MB (CK-2) Rel Index 0.9, CK and CKMB Interp < 0.5, Troponin I < 0.02, Total Protein 7.9, Albumin 3.8, Globulin 4.1 H, Albumin/ Globulin Ratio 0.9 L, D-Dimer 167, WBC 11.8 H, RBC 4.22, Hgb 13.1, Hct 39.4, MCV 93.3, RDW 13.8, Plt Count 309, MPV 8.0, Gran % 71.9, Gran # 8.5 H, Lymphocytes % 20.5, Monocytes % 6.0, Eosinophils % 1.2, Basophils % 0.4, Lymphocytes # 2.4, Monocytes # 0.7, Eosinophils # 0.1, Basophils # 0.1, PUBS MCHC 33.3, MCH 31.1 Current Medication Orders Sig/Azucena Start time Last Medication Dose Route Stop Time Status Admin Nitroglycerin 1 IN ONCE ONE 09/01 2114 AC 09/01 TP 09/01 Nitroglycerin 0 .STK-MED ONE 09/02 2111 DC .ROUTE Aspirin 324 MG ONCE ONE 09/01 1944 DC 09/01 PO 09/01 Sodium Chloride 10 ML PRN PRN 09/01 1929 AC IV 09/02 1920 Aspirin 0 .STK-MED ONE 09/02 1923 DC .ROUTE Orders Procedure Date/time Status Decision to admit 09/01 2112 Active D-DIMER 09/02 2027 Complete URINALYSIS/COMPLETE 09/01 2005 Complete 12 LEAD EKG-BESSON (INITIAL) 09/01 1920 Active ELECTROCARDIOGRAM REQUEST 09/01 1920 Active CHEST-PORTABLE 09/01 1920 Active IV SALINE LOCK 09/01 1920 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 ST/Twave chgs XRAY/CT/US XRAY/CT/US XRAY chest XR interpretation by reviewed by me Xray Results normal/NAD Departure Departure Time of Disposition 2103 Disposition Still a Patient Clinical Impression Primary Impression: Chest pain Qualifiers: Chest pain type: precordial pain Qualified Code: R07.2 - Precordial pain Condition STABLE Referrals ALISIA CHAVEZ (Family) discussed with dr lane and dr reed ED Critical Care Critical Care No at 2114
[2016-09-01 22:22] VITALS: BP 144/79
--- NOTE | 2016-09-02 06:59 | RADIOLOGY REPORT PS360 ---
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 There are some increased markings in right perihilar region. Perihilar infiltrate is considered. Upright PA and lateral chest may be of further value.. No acute bony abnormalities. IMPRESSION: Possible right perihilar infiltrate
== END 2016-09-01 22:23 | disposition still patient (30) ==
LOC: ER 19:16 → 2ND 21:15 → ER 22:23 → 2ND 22:23
PROVIDERS: Emergency Medicine
DX: R07.2 Precordial pain (principal); R06.02 Shortness of breath; I10 Essential (primary) hypertension; E78.5 Hyperlipidemia, unspecified; J44.9 Chronic obstructive pulmonary disease, unspecified; F41.9 Anxiety disorder, unspecified